=== PATIENT | female | born 1975 | race Caucasian/White ===

== ENCOUNTER 2017-07-11 19:30 | Emergency (ER) | payer SELFPAY ==
[~2017-07-11 19:30] MED LIST: AUGM875T PO; ZOFR4TAB3 PO
[2017-07-11 19:33] VITALS: BP 134/73; PULSE 100; RESP 16; TEMP 98.9; O2SAT 98
[2017-07-11] MEDS ORDERED: KETOROLAC TROMETHAMINE 30 MG/ML (IVP) VIAL IV PUSH ONE (19:45)
--- NOTE | 2017-07-11 19:47 | PD ---
HPI Chief Complaint: Pain: Acute or Chronic Time Seen by Provider: 19:38 Travel History International Travel<30 days: No Contact w/Intl Traveler<30days: No Traveled to known affect area: No History of Present Illness HPI Examined in the presence of female nurse. 41-year-old female witha past medical history presents for evaluation. She reports that she woke up this morning feeling fatigued. Throughout the day she's been having a discoloration in the bilateral axillary skin. she reports that the skin looks more yellow than usual focally in both axilla. She has also been experiencing left-sided chest discomfort. She describes it as a sharp pain which is reproducible when she palpates her chest wall. She denies cough, congestion, sore throat, fevers , chills, shortness of breath, abdominal pain, nausea, vomiting. She denies any new deodorants. She is not on any medications. She denies any recent travel or surgery. She has no other complaints. [facility] Past Medical History Anxiety: Yes Depression: Yes Diminished Hearing: No Past Surgical History Appendectomy: Yes Section: Yes (x3) Cholecystectomy: Yes Hysterectomy: Yes Social History Alcohol Use: No Tobacco Use: Yes (1/2ppd) Substance Use: No Allergies-Medications (Allergen,Severity, Reaction): Coded Allergies: No Known Allergies (Unverified , 11/28/15) Reported Meds & Prescriptions Reported Meds & Active Scripts Active Review of Systems Except as stated in HPI: all other systems reviewed are Neg Physical Exam Narrative GENERAL: Well-developed well-nourished female in no acute distress SKIN: Warm and dry. Bilateral axillary region the skin appears slightly yellow tinged. HEAD: Atraumatic. Normocephalic. EYES: Pupils equal and round. No scleral icterus. No injection or drainage. ENT: No nasal bleeding or discharge. Mucous membranes pink and moist. NECK: Trachea midline. No JVD. CARDIOVASCULAR: Regular rate and rhythm. No murmur appreciated. RESPIRATORY: No accessory muscle use. Clear to auscultation. Breath sounds equal bilaterally. GASTROINTESTINAL: Abdomen soft, non-tender, nondistended. Hepatic and splenic margins not palpable. MUSCULOSKELETAL: No obvious deformities. Focal tenderness to palpation left upper chest wall. No edema. NEUROLOGICAL: Awake and alert. No obvious cranial nerve deficits. Motor grossly within normal limits. Normal speech. PSYCHIATRIC: Appropriate mood and affect; insight and judgment normal. Data Data Last Documented VS Vital Signs Date Time Temp Pulse Resp B/P (MAP) Pulse Ox O2 Delivery O2 Flow Rate FiO2 07/11/17 20:01 86 07/11/17 19:33 98.9 16 134/73 (93) 98 Orders Orders Electrocardiogram (07/11/17 19:43) Complete Blood Count With Diff (07/11/17 19:43) Comprehensive Metabolic Panel (07/11/17 19:43) Chest, Single Ap (07/11/17 19:43) Ed Urine Pregnancytest Poc (07/11/17 19:43) Ketorolac Inj (Toradol Inj) (07/11/17 19:45) Acetaminophen (Tylenol) (07/11/17 21:00) Ed Discharge Order (07/11/17 21:19) Labs Laboratory Tests Test 07/11/17 20:00 White Blood Count 9.2 TH/MM3 Red Blood Count 4.80 MIL/MM3 Hemoglobin 14.9 GM/DL Hematocrit 42.2 % Mean Corpuscular Volume 88.1 FL Mean Corpuscular Hemoglobin 31.0 PG Mean Corpuscular Hemoglobin Concent 35.2 % Red Cell Distribution Width 12.8 % Platelet Count 250 TH/MM3 Mean Platelet Volume 8.9 FL Neutrophils (%) (Auto) 56.7 % Lymphocytes (%) (Auto) 31.9 % Monocytes (%) (Auto) 7.8 % Eosinophils (%) (Auto) 3.2 % Basophils (%) (Auto) 0.4 % Neutrophils # (Auto) 5.2 TH/MM3 Lymphocytes # (Auto) 2.9 TH/MM3 Monocytes # (Auto) 0.7 TH/MM3 Eosinophils # (Auto) 0.3 TH/MM3 Basophils # (Auto) 0.0 TH/MM3 CBC Comment DIFF FINAL Differential Comment Blood Urea Nitrogen 16 MG/DL Creatinine 0.86 MG/DL Random Glucose 105 MG/DL Total Protein 7.6 GM/DL Albumin 3.5 GM/DL Calcium Level 9.1 MG/DL Alkaline Phosphatase 64 U/L Aspartate Amino Transf (AST/SGOT) 25 U/L Alanine Aminotransferase (ALT/SGPT) 36 U/L Total Bilirubin 0.3 MG/DL Sodium Level 138 MEQ/L Potassium Level 4.0 MEQ/L Chloride Level 105 MEQ/L Carbon Dioxide Level 25.3 MEQ/L Anion Gap 8 MEQ/L Estimat Glomerular Filtration Rate 73 ML/MIN MDM Medical Decision Making Medical Screen Exam Complete: Yes Emergency Medical Condition: Yes Medical Record Reviewed: Yes Differential Diagnosis Pleurisy, costochondritis, pericarditis, myocarditis, pulmonary embolism, acute coronary syndrome, pneumothorax, irritant contact dermatitis, jaundice Narrative Course 41-year-old female presents complaining of one day history of fatigue, yellow discoloration and bilateral axillary region, left-sided sharp chest pain that is only reproducible with palpation. On examination she has reproducible tenderness to palpation the left upper chest wall and some yellow discoloration noted in both axillary regions. Physical examination is otherwise unremarkable. Plan is for basic lab work, EKG, chest x-ray. She will be given Toradol for her chest wall pain. EKG reveals sinus rhythm. Chest x-ray was normal. Lab work is unremarkable. The patient feels improved. Suspect a discoloration of her skin in the axillary region secondary to deodorant use as well as musculoskeletal chest wall pain. She is stable for discharge. Diagnosis Primary Impression: Chest wall pain Additional Impression: Discoloration of skin Additional Instructions: Take [id number] ibuprofen or naproxen for chest wall pain per dosing instructions on bottle. Follow-up with primary care physician as needed. Return for any emergent medical conditions. Med/Other Pt SpecificInfo: No Change to Meds Disposition: 01 DISCHARGE HOME Condition: Stable Pierre Grover Jul 11, 2017 19:47
--- NOTE | 2017-07-11 20:22 | RADRPT ---
EXAM DATE/TIME: 07/11/2017 20:02 [place] COMPARISON: No previous studies available for comparison. INDICATIONS : Left side chest pain. No known injury. MEDICAL HISTORY : None. SURGICAL HISTORY : Hysterectomy. ENCOUNTER: Initial ACUITY: 1 day PAIN SCORE: 7/10 LOCATION: Left upper chest FINDINGS: A single view of the chest demonstrates the lungs to be symmetrically aerated without evidence of mas s, infiltrate or effusion. The cardiomediastinal contours are unremarkable. Osseous structures are intact. CONCLUSION: No evidence of acute cardiopulmonary disease. Dawson Paredes MD on July 11, 2017 at 20:20 Board Certified Radiologist. This report was verified electronically.
--- NOTE | 2017-07-11 20:31 | PD ---
Physical Exam Date Seen by Provider: Jul 11, 2017 Narrative This patient presents with left-sided chest pain which she states has been getting progressively worse all day today. Data Data Last Documented VS Vital Signs Date Time Temp Pulse Resp B/P (MAP) Pulse Ox O2 Delivery O2 Flow Rate FiO2 07/11/17 20:01 86 07/11/17 19:33 98.9 16 134/73 (93) 98 Orders Orders Electrocardiogram (07/11/17 19:43) Complete Blood Count With Diff (07/11/17 19:43) Comprehensive Metabolic Panel (07/11/17 19:43) Chest, Single Ap (07/11/17 19:43) Ed Urine Pregnancytest Poc (07/11/17 19:43) Ketorolac Inj (Toradol Inj) (07/11/17 19:45) MDM Supervised Visit with SHAKILA: Yes Interpretation(s) EKG shows a sinus rhythm with no ischemic change. Narrative Course I, Dr. Weaver, have reviewed the advance practice practitioner's documentation and am in agreement, met with the patient face to face, made the diagnosis, and the medical decision making was done by me. *My assessment and Findings: Reproducible left-sided chest wall tenderness. Please see Pierre Grover PA-C's note for results of laboratory and radiographic evaluation, ED course, final diagnosis and disposition Noemy Weaver MD Jul 11, 2017 20:31
[2017-07-11 20:49] LABS: AUTOMATED NEUTROPHIL # 5.2 TH/MM3 (1.8-7.7); BASOPHIL % 0.4 % (0.0-2.0); EOSINOPHIL # 0.3 TH/MM3 (0-0.4); EOSINOPHIL % 3.2 % (0.0-4.0); HEMATOCRIT 42.2 % (35.0-46.0); HEMOGLOBIN 14.9 GM/DL (11.6-15.3); LYMPH % 31.9 % (9.0-44.0); LYMPHOCYTE # 2.9 TH/MM3 (1.0-4.8); MEAN CELL VOLUME 88.1 FL (80.0-100.0); MEAN CORPUSCULAR HGB CONC 35.2 % (32.0-36.0); MEAN PLATELET VOLUME 8.9 FL (7.0-11.0); MONO % 7.8 % (0.0-8.0); MONOCYTE # 0.7 TH/MM3 (0-0.9); NEUT % 56.7 % (16.0-70.0); PLATELET COUNT 250 TH/MM3 (150-450); RED CELL DISTRIBUTION WIDTH 12.8 % (11.6-17.2); WHITE BLOOD COUNT 9.2 TH/MM3 (4.0-11.0)
[2017-07-11] MEDS ORDERED: ACETAMINOPHEN 325 MG TAB PO ONE (21:00)
[2017-07-11 21:09] LABS: ALBUMIN 3.5 GM/DL (3.4-5.0); AST (GOT) 25 U/L (15-37); BICARBONATE 25.3 MEQ/L (21.0-32.0); BLOOD UREA NITROGEN 16 MG/DL (7-18); CALCIUM 9.1 MG/DL (8.5-10.1); CHLORIDE 105 MEQ/L (98-107); CREATININE 0.86 MG/DL (0.50-1.00); GLOMERULAR FILTRATION RATE 73 ML/MIN (>89); GLUCOSE,RANDOM 105 MG/DL (74-106); SODIUM (NA) 138 MEQ/L (136-145)
[2017-07-11 21:13] LABS: ALKALINE PHOSPHATASE 64 U/L (45-117); ALT (GPT) 36 U/L (10-53); TOTAL BILIRUBIN ADULT 0.3 MG/DL (0.2-1.0); TOTAL PROTEIN 7.6 GM/DL (6.4-8.2)
--- NOTE | 2017-07-12 14:54 | EKG ---
Date Performed: 07/11/2017 Time Performed: 19:50:45 PTAGE: 41 years EKG: Sinus rhythm NORMAL ECG NO PREVIOUS TRACING DOCTOR: Atul Tellez Interpretating Date/Time 07/12/2017 14:53:18
== END 2017-07-11 22:00 | disposition home or self-care (01) ==
LOC: NEPD 19:30
DX: R07.89 Other chest pain (principal); R23.8 Other skin changes; F17.200 Nicotine dependence, unspecified, uncomplicated
CPT/HCPCS: 71010; 80053; 85025; 93005; 96374; 99285; J1885